=== PATIENT | male | born 1965 | race Caucasian/White ===

== ENCOUNTER 2023-12-07 09:01 | Outpatient (AMB) | payer MEDICARE, MEDICAID, SELFPAY ==
--- NOTE | 2023-12-07 09:02 | AM.OFFWIN_ITS ---
Intake Vital Signs 12/07/23 09:04 Height 5 ft 11 in Weight 186 lb BMI 25.9 BP 130/90 H Blood Pressure Location Lt brachial Position Sitting Pulse 54 Pulse Source Pulse Oximeter Pulse Oximetry (%) 97 Oxygen Delivery Method Room Air Intake Visit Reasons: EP- RT side chest pain and back pain Intake Note: Patient here for right sided chest pain that started about 3 days ago, he states it hurts to take a full breath and when laying down. Patient Tobacco Use Status: Never used Tobacco Allergies No Known Allergies Allergy (Unknown, Unverified 12/07/23 09:05) NKDA Do you need a note to return to daycare/school/sports/work: No HPI HPI Comments History of Present Illness Details Patient is a 58-year-old male complaining of 3-4 days of right-sided chest pain and right-sided scapular pain. He states the chest pain is worse when he takes a deep breath or when he lays down. He states if he pushed on his right upper chest, he could recreate the pain up until yesterday but today he is unable to do that. He is not sure if it is because it is getting better. He states he does exercise every day and has been doing the same exercises for the last 3-4 months. He denied any unusual lifting moving turning or other trauma to the area. He denies any shortness of breath, cough, fevers, sweating or chest congestion. [facility] Social History Patient Tobacco Use Status: Never used Tobacco Review of Systems Const All systems reviewed & are unremarkable except as noted in HPI and below Physical Exam Vital Signs: Last Vital Signs Pulse 54 12/07/23 09:04 BP 130/90 H 12/07/23 09:04 Pulse Ox 97 12/07/23 09:04 Oxygen Delivery Method Room Air 12/07/23 09:04 BMI result Body Mass Index 25.9 Const General: cooperative, healthy appearing, comfortable, no acute distress and well developed Orientation/consciousness: patient oriented x3 Limitations: no limitations HEENT Head: Yes normal to inspection Ears: hearing grossly normal bilaterally General nose exam: Normal external nose present Face and sinus: Yes normal facial exam Eyes General: appearance normal, both eyes and all related structures Neck Neck: Yes normal visual inspection and Yes full ROM Chest Chest palpation & inspection: normal palpation of entire chest wall Resp Effort & Inspection: normal respiratory effort and able to speak in complete sentences Auscultation: clear to auscultation bilaterally Cardio Rate: regular rate Rhythm: regular rhythm Heart sounds: normal S1 and S2 Back/Spine/Pelvis Other: No pain with palpation to right scapular area Cervical Spine: cervical ROM normal, No cervical muscular tenderness and No Cervical spine tenderness Thoracic/Lumbar Spine: thoracic and lumbar spine normal to inspection, No pain with thoraco-lumbar ROM and No thoracic spinal tenderness Skin General skin exam: no rashes or lesions noted Neuro General: patient oriented x3 Extrem General: Yes normal to inspection Assessment & Plan Assessment & Plan (1) Painful respiration: Code(s): R07.1 - Chest pain on breathing Plan: Vital signs are stable, physical exam unremarkable, as patient was able to reproduce the chest pain by pushing on it up until yesterday, it is likely musculoskeletal. We will get chest x-ray to rule out pneumothorax or pneumonia but unlikely. Plan See above Orders: Orders XR chest 2V Today R07.1 - Chest pain on breathing Coding Level of Care Code New Pt Level 3 (07293) Diagnoses Painful respiration R07.1
[2023-12-07 09:04] VITALS: BP 130/90; PULSE 54; O2SAT 97; BMI 25.9
== END 2023-12-07 10:24 | disposition home or self-care (01) ==
PROVIDERS: Visit Provider Physician Assistant
DX: R07.1 Chest pain on breathing (principal)
CPT/HCPCS: 99203

== ENCOUNTER 2023-12-07 09:16 | Outpatient (REF) | payer MEDICARE, MEDICAID, SELFPAY ==
--- NOTE | ~2023-12-07 | XR_ITS ---
EXAMINATION: XR CHEST CLINICAL INFORMATION: Chest pain with breathing. COMPARISON: None available. TECHNIQUE: PA and lateral views of the chest. FINDINGS: The lungs are clear. The cardiomediastinal silhouette is normal in size. There is no pleural effusion or pneumothorax. No acute osseous abnormality. XR/XR chest 2V IMPRESSION: No acute cardiopulmonary findings. Electronically signed by: Federico Buenrostro MD 12/07/2023 11:42 AM EDT RP
== END 2023-12-07 09:17 | disposition home or self-care (01) ==
LOC: HO.HMGCX 09:16
PROVIDERS: PCP Internal Medicine; Visit Provider Physician Assistant
DX: R07.1 Chest pain on breathing (principal)
CPT/HCPCS: 71046

== ENCOUNTER 2024-09-13 09:21 | Outpatient (REF) | payer MEDICARE, MEDICAID, SELFPAY ==
--- NOTE | ~2024-09-13 | XR_ITS ---
EXAMINATION: XR ELBOW, CONNOR 3V CLINICAL INFORMATION: W19.XXXA - Unspecified fall, initial encounter COMPARISON: None available. TECHNIQUE: AP, lateral, and oblique views of the each elbow. FINDINGS: RIGHT ELBOW: Subtle step-off on the lateral projection of the radial neck, raising the possibility of a minimally displaced radial neck fracture. No additional fractures. There is normal alignment. Joint spaces appear preserved. There is a probable small joint effusion. There is a moderate size olecranon spur present. Normal soft tissues. LEFT ELBOW: Subtle step-off on the lateral projection of the radial neck, raising the possibility of a minimally displaced radial neck fracture. No additional fractures. There is normal alignment. Joint spaces appear preserved. There is a probable small joint effusion. There is a tiny olecranon spur present. Normal soft tissues. XR/XR Elbow Connor min 3V IMPRESSION: 1. Subtle bilateral radial neck fractures, minimally displaced. Small joint effusions bilaterally. 2. Moderate-sized right olecranon spur. Electronically signed by: Romain Pierce MD 09/13/2024 11:22 AM EDT
--- NOTE | ~2024-09-13 | XR_ITS ---
EXAMINATION: XR WRIST, RIGHT CLINICAL INFORMATION: M25.521 - Pain in right elbow COMPARISON: None available. TECHNIQUE: PA, lateral, oblique, and scaphoid views of the right wrist. FINDINGS: The bones and soft tissues are normal. No fracture. Alignment is anatomic with normal joint spaces. No erosions or abnormal soft tissue calcifications. XR/XR wrist RT w scaphoid IMPRESSION: Normal right wrist. Electronically signed by: Romain Pierce MD 09/13/2024 11:24 AM EDT
--- NOTE | ~2024-09-13 | XR_ITS ---
EXAMINATION: XR WRIST, LEFT CLINICAL INFORMATION: M25.521 - Pain in right elbow COMPARISON: None available. TECHNIQUE: PA, lateral, and oblique views of the left wrist. FINDINGS: The bones and soft tissues are normal. No fracture. Alignment is anatomic with normal joint spaces. No erosions or abnormal soft tissue calcifications. XR/XR wrist LT w scaphoid IMPRESSION: Normal left wrist. Electronically signed by: Romain Pierce MD 09/13/2024 11:27 AM EDT
== END 2024-09-13 09:22 | disposition home or self-care (01) ==
LOC: HO.HMGCX 09:21
PROVIDERS: PCP Internal Medicine; Visit Provider Physician Assistant
DX: M25.521 Pain in right elbow (principal); M25.522 Pain in left elbow; S66.911A Strain of unspecified muscle, fascia and tendon at wrist and hand level, right hand, initial encounter; S66.912A Strain of unspecified muscle, fascia and tendon at wrist and hand level, left hand, initial encounter
CPT/HCPCS: 73080; 73110; 99202

== ENCOUNTER 2024-09-13 09:21 | Outpatient (AMB) | payer MEDICARE, MEDICAID, SELFPAY ==
--- NOTE | 2024-09-13 09:46 | AM.OFFWIN_ITS ---
Intake Vital Signs 09/13/24 09:50 Height 5 ft 11 in Weight 186 lb 2 oz BMI 26.0 BP 122/78 Blood Pressure Location Rt brachial Position Sitting Respiration 16 Pulse 64 Pulse Source Pulse Oximeter Temp 98.5 F Temp Source Oral Pulse Oximetry (%) 95 Oxygen Delivery Method Room Air Intake Visit Reasons: EP extreme paint on both arms Intake Note: EP patient here c/o extreme pain on both arms he fell and used his arms to stop it. 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 - The patient tripped and fell forward o n both outstretched hands yesterday morning. - Pain is described as shooting, radiati ng from the wrist to the elbow, and is present in every part of both arms upon palpation. - Movement such as supination and pronat ion exacerbates the pain. - The patient denies numbness, tingling, or weakness in the hands or arms. - The pain has significantly impacted da derik functions, including difficulty using hands for basic tasks. - Pain relief attempts with ice and Alev e (Naproxen) have been minimally effective. Physical Exam General: Cooperative, healthy appearing, comfortable, no acute distress and well developed Orientation: Patient oriented x3 Limitations: Painful movement in wrists and elbows, difficulty using hands due to pain Head: Normal to inspection Ears: Hearing grossly normal bilaterally Nose: Normal External nose present Face and sinus: Normal facial exam Eyes: Appearance normal, both eyes and all related structures Neck: Normal visual inspection and Yes full ROM Respiratory: Normal respiratory effort and able to speak in complete sentences. Clear to auscultation bilaterally Cardiovascular: Regular rate and rhythm. Normal S1 and S2 Skin: No rashes or lesions noted Neuro: Patient oriented x3, no numbness or tingling or weakness in hands or arms Extremities: Painful to palpation in arms, positive Tinel's sign on both wrists, full range of motion in fingers, painful supination, and wrist extension PFSH Social History Patient Tobacco Use Status: Never used Tobacco Review of Systems Const All systems reviewed & are unremarkable except as noted in HPI and below Physical Exam Vital Signs: Last Vital Signs Temp 98.5 F 09/13/24 09:50 Pulse 64 09/13/24 09:50 Resp 16 09/13/24 09:50 BP 122/78 09/13/24 09:50 Pulse Ox 95 09/13/24 09:50 Oxygen Delivery Method Room Air 09/13/24 09:50 BMI result Body Mass Index 26.0 Assessment & Plan Assessment & Plan (1) Fall: Code(s): W19.XXXA - Unspecified fall, initial encounter Qualifiers: Encounter type: initial encounter Qualified Code(s): W19.XXXA - Unspecified fall, initial encounter Plan: X-rays of the wrists and elbows will be conducted to evaluate for fractures or additional injuries. The suspected diagnosis is bilateral wrist sprain given the fall mechanism and examination findings. Continued use of Naproxen is recommended for pain management and inflammation control, to be taken every 12 hours. The patient will undergo imaging immediately, after which follow-up actions will be determined based on the results. The importance of this diagnostic step and pain management has been communicated for functional and inflammatory control. The patient was directed to the imaging location and instructed to return for further instructions post-imaging. Patient was informed and verbally consented to the use of an ambient scribe for clinic note documentation during this visit. (2) Strain of wrist, bilateral: Code(s): S66.911A - Strain of unspecified muscle, fascia and tendon at wrist and hand level, right hand, initial encounter; S66.912A - Strain of unspecified muscle, fascia and tendon at wrist and hand level, left hand, initial encounter Qualifiers: Encounter type: initial encounter Qualified Code(s): S66.911A - Strain of unspecified muscle, fascia and tendon at wrist and hand level, right hand, initial encounter; S66.912A - Strain of unspecified muscle, fascia and tendon at wrist and hand level, left hand, initial encounter Plan: as below (3) Bilateral elbow joint pain: Code(s): M25.521 - Pain in right elbow; M25.522 - Pain in left elbow Plan: as below (4) Closed traumatic minimally displaced fracture of neck of left radius: Code(s): S52.132A - Displaced fracture of neck of left radius, initial encounter for closed fracture Qualifiers: Encounter type: initial encounter Qualified Code(s): S52.132A - Displ aced fracture of neck of left radius, initial encounter for closed fracture Plan: Range of motion exercises consist primarily of extension and flexion of the elbow with the emphasis on fully straightening and flexing the joint. Additionally, the patient performs pronation and supination with their arm at their side and their elbow held at 90 degrees. In this position, the patient simply rotates the forearm so the palm faces up and then down. Patinet was given a sling for each arm for comfort, ice, analgesics, and orthopedic referral within several days for further care.?He is aware he needs to ask his PCP for a referral to Orthopedics. (5) Closed traumatic minimally displaced fracture of neck of right radius: Code(s): S52.131A - Displaced fracture of neck of right radius, initial encounter for closed fracture Qualifiers: Encounter type: initial encounter Qualified Code(s): S52.131A - Displaced fracture of neck of right radius, initial encounter for closed fractur e Plan: Range of motion exercises consist primarily of extension and flexion of the elbow with the emphasis on fully straightening and flexing the joint. Additionally, the patient performs pronation and supination with their arm at their side and their elbow held at 90 degrees. In this position, the patient simply rotates the forearm so the palm faces up and then down. Patinet was given a sling for each arm for comfort, ice, analgesics, and orthopedic referral within several days for further care.?He is aware he needs to ask his PCP for a referral to Orthopedics. Orders: Orders XR Elbow Connor min 3V Today M25.521 - Pain in right elbow, M25.522 - Pain in left elbow, S66.911A - Strain of unspecified muscle, fascia and tendon at wrist and hand level, right hand, initial encounter, S66.912A - Strain of unspecified muscle, fascia and tendon at wrist and hand level, left hand, initial encounter, W19.XXXA - Unspecified fall, initial encounter XR wrist LT w scaphoid Today M25.521 - Pain in right elbow, M25.522 - Pain in left elbow, S66.911A - Strain of unspecified muscle, fascia and tendon at wrist and hand level, right hand, initial encounter, S66.912A - Strain of unspecified muscle, fascia and tendon at wrist and hand level, left hand, initial encounter, W19.XXXA - Unspecified fall, initial encounter XR wrist RT w scaphoid Today M25.521 - Pain in right elbow, M25.522 - Pain in left elbow, S66.911A - Strain of unspecified muscle, fascia and tendon at wrist and hand level, right hand, initial encounter, S66.912A - Strain of unspecified muscle, fascia and tendon at wrist and hand level, left hand, initial encounter, W19.XXXA - Unspecified fall, initial encounter Coding Level of Care Code New Pt Level 4 (34627) Diagnoses Fall, initial encounter W19.XXXA Encounter type: initial encounter Strain of both wrists, initial encounter S66.911A; S66.912A Encounter type: initial encounter Bilateral elbow joint pain M25.521; M25.522 Closed traumatic minimally displaced fracture of neck of left radius, initial encounter S52.132A Encounter type: initial encounter Closed traumatic minimally displaced fracture of neck of right radius, initial encounter S52.131A Encounter type: initial encounter
[2024-09-13 09:50] VITALS: BP 122/78; PULSE 64; RESP 16; TEMP 36.9; O2SAT 95; BMI 26.0
--- OUTSIDE RECORDS SUMMARY | 2024-09-13 10:00 | XMS_ITS | Clinical Summary ---
Author Organization [facility] [address] [place] [address] [place] [address] Phone Care Team Providers Care Real Estate Paralegal Name Role Phone Apolinar Ellis MD Primary Care Provider [phone] Allergies No known active allergies Medications levothyroxine (SYNTHROID, LEVOTHROID) 125 mcg tablet Take 1 tablet by mouth Wednesday through Wednesday, skip Sundays. 90 tablet 1 08/08/2024 Active Active Problems Problem Noted Date Diagnosed Date Anxiety 03/21/2024 Hypothyroid 03/21/2024 Major depression 03/21/2024 COVID-19 11/21/2021 Abnormal CXR 02/03/2021 Overview (03/21/2024): 12/2020: Possible COPD. PFTs 01/2021: WNL. Pure hypercholesterolemia 12/06/2017 Drug use disorder 01/21/2011 Overview (03/21/2024): Frequent marijuana use Headache 01/21/2011 Encounters Date Type Department Care Team Description 08/08/2024 1:00 PM EDT Office Visit Adult Medicine [address] [phone] [place] Hypothyroidism, unspecified type (Primary Dx); Pure hypercholesterolemia; Anxiety; Major depressive disorder, remission status unspecified, unspecified whether recurrent from Last 3 Months Immunizations Name Administration Dates Next Due Influenza Quadravalent, MDCK , 0.5ml, preservative free (Flucelvax) 6mo and older 02/22/2023,01/13/2021 Tdap Tetanus diptheria acell ular pertussis (Boostrix; Adacel) 7yo and older 06/13/2024,01/18/2013 Surgical History Surgery Date Site/Laterality Comments WISDOM TOOTH EXTRACTION COLONOSCOPY 08/11/23 adenoma and tics; repeat under propofol in 5 years Medical History Medical History Date Comments Hypothyroid Major depression Anxiety Family History Medical History Relation Name Comments Diabetes Aunt paternal Lung cancer Father Other: Other Mother obesity Relation Name Status Comments Aunt Father Mother Social History Tobacco Use Types Packs/Day Years Used Date Smoking Tobacco: Never Assessed Cigarettes Passive Smoke Exposure: Never Smokeless Tobacco: Never Alcohol Use Standard Drinks/Week Comments No 0 (1 standard drink = 0.6 oz pur e alcohol) Sex and Gender Information Value Date Recorded Sex Assigned at Not on file Legal Sex Male 5:57 PM EST Gender Identity Not on file Sexual Orientation Not on file Obstetrics History Last Filed Vital Signs Vital Sign Reading Time Taken Comments Blood Pressure 110/64 08/08/2024 1:05 PM EDT Pulse 60 08/08/2024 1:05 PM EDT Temperature 36.9 ??C (98.5 ??F) 08/08/2024 1:05 PM ED T Respiratory Rate 14 06/13/2024 1:30 PM EST Oxygen Saturation 97% 08/08/2024 1:05 PM EDT Inhaled Oxygen Concentration - - Weight 84.6 kg (186 lb 8 oz) 08/08/2024 1:05 PM EDT Height 180.3 cm (5' 10.98 ) 08/08/2024 1:05 PM E DT Body Mass Index 26.02 08/08/2024 1:05 PM EDT Plan of Treatment Upcoming Encounters Date Type Department Care Team (Late st Contact Info) Description 02/19/2025 4:30 PM EST Office Visit Adult Medicine [address] [phone] Apolinar Ellis MD [address] [place] [address] [phone] Health Maintenance Due Date Last Done Comments Pneumococcal Vaccine: 50+ Years (1 of 1 - PCV) 2013 Zoster Vaccines (1 of 2) 2013 Depression Screening 03/28/2022 HIV Screening 03/28/2022 Medicare Annual Wellness Visit 03/28/2022 Social Influencers of Health Screening 03/28/2022 COVID-19 Vaccine (3 - 2023-2 5 season) 2023 09/25/2020, 08/28/2020 Influenza Vaccine (Season Ended) 2024 02/22/2023, 01/13/2021 Colorectal Cancer Screening: Colonoscopy 05/12/2026 05/12/2021 Cholesterol Screening (Lipid Panel) 08/25/2028 08/26/2023, 08/26/2023 DTaP,Tdap,and Td Vaccines (3 - Td or Tdap) 06/13/2034 06/13/2024, 01/18/2013 RSV Immunization Adult Patients (1 - 1-dose 75+ series) 2038 Hepatitis C Screening Completed 07/25/2010 HIB Vaccines Aged Out No longer eligi ble based on patient's age to complete this topic HPV Vaccines Aged Out No longer eligi ble based on patient's age to complete this topic Hepatitis A Vaccines Aged Out No long er eligible based on patient's age to complete this topic Hepatitis B Vaccines Aged Out No long er eligible based on patient's age to complete this topic IPV Vaccines Aged Out No longer eligi ble based on patient's age to complete this topic MMR Vaccines Aged Out No longer eligi ble based on patient's age to complete this topic Meningococcal ACWY Vaccine Aged Out N o longer eligible based on patient's age to complete this topic Meningococcal B Vaccine Aged Out No l onger eligible based on patient's age to complete this topic Pneumococcal Vaccine: Pediatrics (0 to 5 Years) and At-Risk Patients (6 to 64 Years) Aged Out No longer eligible b ased on patient's age to complete this topic RSV Immunization Patients Under 20 months Aged Out No longer eligible b ased on patient's age to complete this topic Varicella Vaccines Aged Out No longer eligible based on patient's age to complete this topic Procedures Procedure Name Priority Date/Time Associated Diagnosis Comments LIPID PANEL Routine 08/26/2023 COLONOSCOPY Routine 05/12/2021 HEPATITIS C SCREENING Routine 07/25/2010 from Last 3 Months or Most Recently Relevant to Health Maintenance Results * Lipid panel (08/26/2023) Pathologist [facility] [place] LDL/HDL Ratio 3 0 - 4 Triglycerides 81 0 - 150 mg/dL Cholesterol 142 0 - 200 mg/dL HDL 52 >=40 mg/dL LDL Cholesterol 74 0 - 100 mg/dL Blood Venous blood specimen / Unknown [facility] Provider LAB BLOOD ORDERABLES [place] Result * Colonoscopy (05/12/2021) Pathologist [facility] Colonoscopy no interpretation , abstracted Anatomical Region Laterality Modality Other [facility] Provider HEALTH MAINTENANCE Final Result * Hepatitis C Screening (07/25/2010) Pathologist [facility] Hepatitis C Screening abstracted [facility] Provider HEALTH MAINTENANCE Final Result from Last 3 Months or Most Recently Relevant to Health Maintenance Insurance [place] [employer] [employer]AGE Care Teams Real Estate Paralegal Relationship Specialty Start Date End Date Apolinar Ellis MD [address] [place] [id number] PCP - General 06/26/10
== END 2024-09-13 12:42 | disposition home or self-care (01) ==
PROVIDERS: PCP Internal Medicine; Visit Provider Physician Assistant
DX: S66.911A Strain of unspecified muscle, fascia and tendon at wrist and hand level, right hand, initial encounter (principal); S66.912A Strain of unspecified muscle, fascia and tendon at wrist and hand level, left hand, initial encounter; W19.XXXA Unspecified fall, initial encounter; M25.521 Pain in right elbow; M25.522 Pain in left elbow; S52.132A Displaced fracture of neck of left radius, initial encounter for closed fracture; S52.131A Displaced fracture of neck of right radius, initial encounter for closed fracture

== ENCOUNTER → 2024-09-13 10:43 | Outpatient (BNV) | payer MEDICARE, MEDICAID, SELFPAY | PROVIDERS: PCP Internal Medicine; Visit Provider Radiology Diagnostic Radiology | DX: M79.603 Pain in arm, unspecified (principal); M25.532 Pain in left wrist; M25.521 Pain in right elbow | CPT/HCPCS: 73080; 73110 ==

== ENCOUNTER 2024-09-14 11:53 | Emergency (ER) | payer MEDICARE, MEDICAID, SELFPAY ==
[2024-09-14 12:00] VITALS: BP 123/69; BP 190/47; PULSE 53; PULSE 57; RESP 16; TEMP 36.9; O2SAT 96; O2SAT 97; BMI 25.9
--- NOTE | 2024-09-14 12:07 | ED_ITS ---
HPI - General Adult General Chief complaint: General Medical Stated complaint: BILATERAL ELBOW FX Time Seen by Provider: 09/14/24 12:07 Source: patient Mode of arrival: ambulatory Limitations: no limitations History of Present Illness ED Provider: HPI narrative: 59-year-old male presents for evaluation, apparently he called his PCP's office and was told to come to the ER he did speak to a provider, yesterday was seen at urgent Care had x-rays and has bilateral minimally displaced radial head fractures this was from a near fall when he tried to help himself up, he is essentially requesting pain medications. No drug or alcohol use reported. No other trauma reported. Related Data Home Medications ?Medication ?Instructions ?Recorded ?Confirmed levothyroxine 125 mcg tablet 125 mcg PO DAILY 12/07/23 Previous Rx's ?Medication ?Instructions ?Recorded acetaminophen 500 mg capsule 1,000 mg (2 x 500 mg) PO Q6H PRN 09/14/24 pain 5 days #20 caps naproxen 500 mg tablet 500 mg PO BID 5 days #10 tabs 09/14/24 oxycodone 5 mg capsule 5 mg PO Q6H PRN pain #7 caps 09/14/24 Allergies Allergy/AdvReac Type Severity Reaction Status Date / Time No Known Allergies Allergy Unknown NKDA Verified 09/14/24 12:02 Review of Systems Review of Systems: Yes all other systems are reviewed and are negative [facility] Social History Social History Patient Tobacco Use Status: Never used Tobacco Physical Exam ED Vital Signs: Vital Signs - 24 hr 09/14/24 12:00 Temperature 98.5 F Pulse Rate 57 Respiratory Rate 16 Blood Pressure 123/69 Pulse Oximetry 96 Oxygen Delivery Method Room Air BMI result Body Mass Index 25.9 Const Other: Atraumatic head and face alert and oriented x4 moving upper and lower extremities symmetrically no cranial nerve deficits Examination of both shoulders is unremarkable, both elbows he lacks approximately 3-5 degrees of extension bilaterally with no effusion no deformities soft compartments proximally and distally distal neurovascular function intact bilateral upper extremities Medical Decision Making Medical Decision Making [facility] Narrative: Patient does not require slings on both sides is going to limit him as far as range of motion and activities of daily living, I will provide a few days of narcotic pain medications but otherwise see my discharge instructions regarding pain control, I will provide him a referral to Orthopedics, no other trauma noted he also had x-rays that I reviewed without distal radius fractures. Differential Diagnosis Compartment syndrome, hand injury, wrist injury, head injury, contractures Radiology Impression Radiologist Impression: XR/XR Elbow Connor min 3V IMPRESSION: 1. Subtle bilateral radial neck fractures, minimally displaced. Small joint effusions bilaterally. 2. Moderate-sized right olecranon spur. Discharge Plan Discharge Clinical Impression: Bilateral elbow joint pain Patient Disposition: Home, Self-Care Additional Instructions: I encourage you to perform hszlr-no-tbmadv exercises, you can also carry things in your hands, but limit the weight to what feels convenient to you, make sure you do not develop contractures by limited in range of motion or keep your arms in a sling, actually discouraged use of sling with these type of fractures, Tylenol 975 mg every 6 hours around the clock for pain, you can also use ibuprofen 400 mg every 6 hours for additional pain control for the next few days only, and I will provide him just a few days' worth of oxycodone really if he need additional pain medication was too should not you have some discomfort you should get in touch with the PCP, you can also ice the elbows, these radial head fractures typically heal well we just want to make sure he did not develop any contractures limiting her lifestyle in the future Prescriptions: New acetaminophen 500 mg capsule 1,000 mg PO Q6H PRN (Reason: pain) 5 Days Qty: 20 0RF naproxen 500 mg tablet 500 mg PO BID 5 Days Qty: 10 0RF oxycodone 5 mg capsule 5 mg PO Q6H PRN (Reason: pain) Qty: 7 0RF Rx Instructions: Partial Fill upon patient request. No Action levothyroxine 125 mcg tablet 125 mcg PO DAILY Referrals: [facility] [Provider Group] Print Language: Greek
--- OUTSIDE RECORDS SUMMARY | 2024-09-14 12:19 | XMS_ITS | Clinical Summary ---
Author Organization [facility] [address] [place] [address] [place] [address] Phone Care Team Providers Care Marketing Content Coordinator Name Role Phone Apolinar Ellis MD Primary Care Provider [phone] Allergies No known active allergies Medications levothyroxine [...] Encounters Date Type Department Care Team Description 09/14/2024 Nurse Triage Adult Medicine [address] [phone] Apolinar Ellis MD Elbow Injury 08/08/2024 1:00 PM EDT Office Visit Adult Medicine [address] [phone] Quoc Mg PA Hypothyroidism, unspecified type (Primary [...] 4:30 PM EST Office Visit Adult Medicine [address] [phone] Apolinar Ellis MD [address] [place] [phone] Health Maintenance Due Date Last Done Comments [...] Health Maintenance Results * Lipid panel (08/26/2023) LDL/HDL Ratio 3 0 - 4 Triglycerides 81 0 - 150 mg/dL Cholesterol 142 0 - 200 mg/dL HDL 52 >=40 mg/dL LDL Cholesterol 74 0 - 100 mg/dL Blood Venous blood specimen / Unknown [facility] Provider LAB BLOOD ORDERABLES [place] Result * Colonoscopy (05/12/2021) Colonoscopy no interpretation , abstracted Anatomical Region Laterality Modality Other Historical Provider HEALTH MAINTENANCE Final Result * Hepatitis C Screening (07/25/2010) Hepatitis C Screening abstracted Historical Provider HEALTH MAINTENANCE Final Result from Last 3 Months or Most Recently Relevant to Health Maintenance Insurance [place] [employer] MEDICARE ADVANTAGE Care Teams Marketing Content Coordinator Relationship Specialty Start Date End Date Apolinar Ellis MD [address] [place] [address] [phone] PCP - General 06/26/10
[2024-09-14 12:39] VITALS: BP 126/82; PULSE 50; RESP 18; O2SAT 98
[2024-09-14] MEDS: oxyCODONE HCl Immed Release 5 MG TABLET PO (12:42)
[2024-09-14] MEDS: Acetaminophen 325 MG TABLET 975 MG PO (12:42)
[2024-09-14 12:48] VITALS: BP 126/82; PULSE 50; RESP 18; TEMP 36.7; O2SAT 98
== END 2024-09-14 12:49 | disposition home or self-care (01) ==
PROVIDERS: Emergency Provider Emergency Medicine; PCP Internal Medicine
DX: M25.521 Pain in right elbow (principal); M25.522 Pain in left elbow; Z79.899 Other long term (current) drug therapy
CPT/HCPCS: 99283; 99284

== ENCOUNTER 2024-09-18 07:53 | Outpatient (REF) | payer MEDICARE, MEDICAID, SELFPAY | END 2024-09-18 07:54 | disposition home or self-care (01) | LOC: HO.HOSX 07:53 | DX: Z13.89 Encounter for screening for other disorder (principal) ==

== ENCOUNTER 2024-10-14 19:00 | Emergency (ER) | payer MEDICARE, MEDICAID, SELFPAY ==
[2024-10-14 19:14] VITALS: BP 129/80; BP 144/78; PULSE 60; PULSE 65; RESP 16; TEMP 36.6; O2SAT 97; O2SAT 98; BMI 25.8
[2024-10-14 19:17] VITALS: BP 129/80; PULSE 60; RESP 16; TEMP 36.6; O2SAT 98
[2024-10-14] MEDS: Lidocaine HCl 1%/Epi 1:100,000 10 ML VIAL INFILTRATI (20:22)
--- NOTE | 2024-10-14 20:44 | ED_ITS ---
HPI - General Adult General Chief complaint: Wound/Laceration Stated complaint: punctured back bleeding controlled bleeding Time Seen by Provider: 10/14/24 19:44 Source: patient Limitations: no limitations History of Present Illness ED Provider: Patricia Moran PA-C HPI narrative: 59-year-old male presents with back laceration. Patient states he was painting, he backed into a wall, there was something sharp, which lacerated his back. Tetanus up-to-date. Related Data Home Medications ?Medication ?Instructions ?Recorded ?Confirmed levothyroxine 125 mcg tablet 125 mcg PO DAILY 12/07/23 Previous Rx's ?Medication ?Instructions ?Recorded acetaminophen 500 mg capsule 1,000 mg (2 x 500 mg) PO Q6H PRN 09/14/24 pain 5 days #20 caps naproxen 500 mg tablet 500 mg PO BID 5 days #10 tab s 09/14/24 oxycodone 5 mg tablet 5 mg PO Q6H PRN pain #4 tabs 09/14/24 Allergies Allergy/AdvReac Type Severity Reaction Status Date / Time No Known Allergies Allergy Unknown NKDA Verified 10/14/24 19:16 Review of Systems Review of Systems: Yes all other systems are reviewed and are negative Constitutional: Constitutional: Denies fatigue and Denies fever(s) Endocrine: Endocrine: Denies fatigue PMFSH Past Medical History Attestation statement: The following information was validated with the patient. Social History Social History Patient Tobacco Use Status: Never used Tobacco Smoked in Last 30 Days: No Use of substances other than those prescribed or required for medical reasons: Yes Substance Use Type: Marijuana Advance Directives: No Advance Directives Information Provided: No Physical Exam ED Vital Signs: Vital Signs - 24 hr 10/14/24 19:14 10/14/24 19:17 10/14/24 20:53 Temperature 97.8 F 97.8 F 97.8 F Pulse Rate 60 60 60 Respiratory Rate 16 16 16 Blood Pressure 129/80 129/80 129/80 Pulse Oximetry 98 98 98 Oxygen Delivery Method Room Air Room Air Room Air BMI result Body Mass Index 25.8 Const Other: Alert Orientation/consciousness: patient oriented x3 Resp Effort & Inspection: normal respiratory effort Cardio Other: Normal peripheral perfusion Back/Spine/Pelvis Other: 3 cm a regular/somewhat linear laceration that is superficial central mid back at the base of the T-spine, no longer bleeding Skin Other: Warm dry no rash Neuro General: patient oriented x3, gait normal, no focal motor deficits and CN's II- XI intact bilaterally Psych Other: Cooperative Medications Administered Discontinued Medications Generic Name Dose Route Start Last Admin Trade Name Freq PRN Reason Stop Dose Admin Lidocaine/Epinephrine 10 ml 10/14/24 20:18 10/14/24 20:22 Lidocaine Hcl 1%/Epi 1:100,000 10 Ml Vial INFILTRATI 10/14/24 20:19 10 ml ONCE ONE Administration Procedures Laceration Laceration 1: Site: back Size (cm): 3 Description: linear and irregular Depth: simple, single layer Local Anesthetic: lidocaine 1% and with epi Amount of anesthesia used (mL): 5 Pre-repair: irrigated extensively Skin layer closed with: nylon Size (cm): 3-0 Number of sutures: 7 Technique: simple, interrupted Medical Decision Making Medical Decision Making MDM Narrative: 59-year-old male presents with back laceration. Patient states he was painting, he backed into a wall, there was something sharp, which lacerated his back. Tetanus up-to-date. No relevant chronic issues History: Per patient I have considered the following differential diagnoses: Laceration, excoriation, puncture wound, avulsion, abrasion Plan: Patient has a simple laceration, imaging not warranted labs not warranted. Discharge Plan Discharge Clinical Impression: Laceration of back Patient Disposition: Home, Self-Care Instructions: Laceration (ED) Additional Instructions: 7 stitches were utilized to repair the laceration. They can be removed in 7 days. You can return to the ER for removal or go to your primary care. See home care instructions. Keep the area clean and dry. You can shower normally. Watch for signs of infection which would include redness, swelling, warmth, pus draining from the site or fever. Prescriptions: No Action acetaminophen 500 mg capsule 1,000 mg PO Q6H PRN (Reason: pain) 5 Days Qty: 20 0RF naproxen 500 mg tablet 500 mg PO BID 5 Days Qty: 10 0RF oxycodone 5 mg tablet 5 mg PO Q6H PRN (Reason: pain) Qty: 4 0RF Rx Instructions: Partial Fill upon patient request. levothyroxine 125 mcg tablet 125 mcg PO DAILY Interventions: ED Discharge Assessment Last Done: 10/14/24 20:53 Discharge Date/Time: 10/14/24 20:53 Print Language: Jordanian
[2024-10-14 20:53] VITALS: BP 129/80; PULSE 60; RESP 16; TEMP 36.6; O2SAT 98
== END 2024-10-14 20:53 | disposition home or self-care (01) ==
PROVIDERS: Emergency Provider Emergency Medicine Emergency Medical Services
DX: S31.010A Laceration without foreign body of lower back and pelvis without penetration into retroperitoneum, initial encounter (principal); M54.50 Low back pain, unspecified; X58.XXXA Exposure to other specified factors, initial encounter; W26.9XXA Contact with unspecified sharp object(s), initial encounter; Y93.9 Activity, unspecified; Y92.9 Unspecified place or not applicable; Y99.8 Other external cause status; Z79.899 Other long term (current) drug therapy
CPT/HCPCS: 12002; 99284; J2004

== ENCOUNTER 2024-10-17 09:45 | Outpatient (AMB) | payer MEDICARE, MEDICAID, SELFPAY ==
--- OUTSIDE RECORDS SUMMARY | 2024-10-17 05:34 | XMS_ITS | Continuity of Care Document ---
Author Name [facility] Organization [facility] Care Team Providers Care Distribution Coordinator Name Role Phone [facility] Unavailable Unavailable Problems Combined list of problems from Department of Defense and Veterans Affairs facilities. It does not include entries that were removed or entered in error. Problem Status Onset Date Problem Type Date of Resolution Comments Source Housing instability due to imminent risk of homelessness Active Condition [facility] Diagnosis: ICD-10-CM Z59.9 Problem related to housing and economic circumstances, unsp Active Diagnosis [facility] Encounters Combined list of: 1) Encounters from Department of Veterans Affairs facilities going backup to the last 18 months, not all VA inpatient encounters are included; 2) Encounters from the Department of Defense facilities going backup to 280 months. Location Location Details Encounter Type Encounter Number Reason For Visit Attending Provider ADM Date DC Date Status Disposition Source [facility] PT EDUCATION NOC [place]DIVID [id number] Diagnos is: ICD-10- CM Z59.9 Problem related to housing and economi c circums tances, unsp BENWAY,GARCÍA AN L 08/29 [facility] PT EDUCATION NOC [place]DIV[place] [id number] Diagnos is: ICD-10- CM Z59.9 Problem related to housing and economi c circums tances, unsp BENWAY,GARCÍA AN L 08/30 [facility] Outpatient Encounter [id number] 09/01 [facility] PT EDUCATION NOC [place]DIV[facility] [id number] Diagnos is: ICD-10- CM Z59.9 Problem related to housing and economi c circums tances, unsp BENWAY,GARCÍA AN L 09/07 [facility] Outpatient [facility]counter [id number] 09/08 [facility] PH1 ASSMT&MGMT NQHP 5-10 [id number] Diagnos is: ICD-10- CM Z59.9 Problem related to housing and economi c circums tances, unsp LEANDRA ORTIZ 09/08 [facility] PT EDUCATION NOC INDIVID [id number] Diagnos is: ICD-10- CM Z59.9 Problem related to housing and economi c circums tances, unsp BENWAY,GARCÍA AN L 09/19 [facility] PT EDUCATION NOC INDIVID [id number] Diagnos is: ICD-10- CM Z59.9 Problem related to housing and economi c circums tances, unsp BENWAY,GARCÍA AN L 09/20 [facility] Outpatient Encounter [id number] 09/27 [facility] Outpatient Encounter [id number] 10/06 [facility] Outpatient Encounter [id number] 10/12 [facility] Plan of Care List of future care activities from Department of Veterans Affairs facilities. Additional future care activities may be listed in the Assessment and Plan section. Date/Time Care Activity Care Activity Detail Facili ty 10/26/2024 AMBULATORY - MEDICINE AM[facility]ULATORY - [facility] [place]
[2024-10-17 09:52] VITALS: BP 132/80; PULSE 61; TEMP 36.6; O2SAT 99; BMI 25.5
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
== END 2024-10-17 10:22 | disposition home or self-care (01) ==
PROVIDERS: Visit Provider Physician Assistant Medical
DX: T14.8XXD Other injury of unspecified body region, subsequent encounter (principal)

== ENCOUNTER → 2024-10-17 09:45 | Outpatient (BNVA) | payer MEDICARE, MEDICAID, SELFPAY | DX: T14.8XXD Other injury of unspecified body region, subsequent encounter (principal) | CPT/HCPCS: 99212 ==

== ENCOUNTER 2024-10-23 09:32 | Outpatient (AMB) | payer MEDICARE, MEDICAID, SELFPAY ==
--- OUTSIDE RECORDS SUMMARY | 2024-10-23 05:03 | XMS_ITS | Continuity of Care Document ---
Author Name [facility] Organization [facility] Care Team Providers Care Airline Attendant Name Role Phone [facility] Unavailable Unavailable Problems [...] [facility] [place] [id number] Diagnos is: ICD-10- CM Z59.9 Problem related to housing and economi c circums tances, unsp BENWAY,GARCÍA AN L 08/29 [facility] PT EDUCATION NOC INDIVID [id number] Diagnos is: ICD-10- CM Z59.9 Problem related to housing and economi c circums tances, unsp BENWAY,GARCÍA AN L 08/30 [facility] En[facility] [id number] 09/01 [facility] PT EDUCATION NOC INDIVID [id number] Diagnos is: ICD-10- CM Z59.9 Problem related to housing and economi c circums tances, unsp BENWAY,GARCÍA AN L 09/07 [facility] Encounter [id number] 09/08 [facility] PH1 ASSMT&MGMT NQHP 5-10 [id number] Diagnos is: ICD-10- CM Z59.9 Problem related to housing and economi c circums tances, unsp LEANDRA ORTIZ 09/08 [facility] PT EDUCATION NOC INDIVID [id number] Diagnos is: ICD-10- CM Z59.9 Problem related to housing and economi c circums tances, unsp BENWAY,GARCÍA AN L 09/19 [facility] PT EDUCATION NOC INDIVID [id number] Diagnos is: ICD-10- CM Z59.9 Problem related to housing and economi c circums tances, unsp BENWAY,GARCÍA AN L 09/20 [facility] En[facility] [id number] 09/27 [facility] [id number] 10/06 [facility] En[facility] [id number] 10/12 [facility] PT EDUCATION NOC INDIVID [id number] Diagnos is: ICD-10- CM Z59.9 Problem related to housing and economi c circums tances, unsp BENWAY,GARCÍA AN L 10/19 [facility] Plan of Care List of future care activities from Department of Veterans Affairs facilities. Additional future care activities may be listed in the Assessment and Plan section. Date/Time Care Activity Care Activity Detail Facili ty 10/26/2024 AMBULATORY - MEDICINE [facility]ORY - [facility]
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
[2024-10-23 09:38] VITALS: BP 122/74; PULSE 67; TEMP 36.9; O2SAT 98; BMI 25.5
--- OUTSIDE RECORDS SUMMARY | 2024-10-23 10:04 | XMS_ITS | Encounter Summary ---
Author Organization [facility] Address [address] [place] [address] Care Team Providers Care Oven Roaster Name Role Phone Apolinar Ellis MD Primary Care Provider [phone] Encounter Details Date Type Department Care Team Description 02/21/2022 Orders Only Adult Medicine [address] [address] Mildred Stanton PA-C [address] [place] [phone] Low mean corpuscular volume (MCV) (Primary Dx); Hypothyroidism, unspecified type Social History Tobacco Use Types Packs/Day Years Used Date Smoking Tobacco: Former Cigarettes 0.5 30 Q uit: 04/19/2008 Smokeless Tobacco: Never Alcohol Use Standard Drinks/Week Comments No 0 (1 standard drink = 0.6 oz pur e alcohol) Sex Assigned at Date Recorded Not on file Job Start Date Occupation Industry Not on file Not on file Not on file COVID-19 Exposure Response Date Recorded In the last 10 days, have yo u been in contact with someone who was confirmed or suspected to have Coronavirus/COVID-19? No / Unsure 02/19/2022 2:43 PM EDT documented as of this encounter Plan of Treatment Not on file documented as of this encounter Results * (ABNORMAL) TSH (06/01/2022 8:51 AM EST) TSH 4.55(H) 0.40 - 4.00 uIU/ml 06/01/2022 12:22 PM EST [facility] [employer] 06/01/2022 8:51 AM EST 06/01/2022 8:52 AM EST Narrative [facility] LEXY - 06/01/2022 12:22 PM EST Release to patient->Immediate Mildred Stanton PA-C LAB [facility] documented in this encounter Visit Diagnoses Diagnosis Low mean corpuscular volume (MCV)- Primary Hypothyroidism, unspecified type Hypothyroidism, unspecified type documented in this encounter Care Teams Oven Roaster Relationship Specialty Start Date End Date Apolinar Ellis MD [address] [place] [id number] PCP - General 06/26/10 documented as of this encounter
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
== END 2024-10-23 10:06 | disposition home or self-care (01) ==
PROVIDERS: Visit Provider Physician Assistant Medical
DX: Z48.02 Encounter for removal of sutures (principal)

== ENCOUNTER → 2024-10-23 09:32 | Outpatient (BNVA) | payer MEDICARE, MEDICAID, SELFPAY | PROVIDERS: Visit Provider Physician Assistant Medical | DX: Z48.02 Encounter for removal of sutures (principal) | CPT/HCPCS: 99212 ==